=== PATIENT | male | born 1975 | race African-American/Black ===

== ENCOUNTER 2022-02-13 03:57 | Day surgery (SDC) | payer BC, OTHER ==
[2022-02-13 09:52] VITALS: BMI 41.8
[2022-02-13 11:39] VITALS: RESP 18
[2022-02-13 12:02] VITALS: BP 108/62; PULSE 77; TEMP 98
== END 2022-02-13 12:15 | disposition home or self-care (01) ==
LOC: JASU-ENDO 03:57
PROVIDERS: ATTEND Internal Medicine Gastroenterology
PROC: 0DBF8ZX Excision of Right Large Intestine, Via Natural or Artificial Opening Endoscopic, Diagnostic (ICD-10-PCS; principal; 2022-02-13 10:30)
DX: Z12.11 Encounter for screening for malignant neoplasm of colon (principal); K57.30 Diverticulosis of large intestine without perforation or abscess without bleeding; K64.8 Other hemorrhoids
CPT/HCPCS: 88305-TC